=== PATIENT | male | born 2000 | race Caucasian/White ===

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

== ENCOUNTER 2019-01-26 18:38 | Emergency (ER) | payer SELFPAY ==
[~2019-01-26] VITALS: Ht 175.3 cm; Wt 72.7 kg
[2019-01-26 18:41] VITALS: TEMP 97.1
[2019-01-26 20:15] VITALS: BP 134/61; PULSE 72
== END 2019-01-26 20:15 | disposition home or self-care (01) ==
LOC: COL.ER 18:38
DX: S01.81XA Laceration without foreign body of other part of head, initial encounter (principal); R41.1 Anterograde amnesia; R55 Syncope and collapse; F17.210 Nicotine dependence, cigarettes, uncomplicated; F12.90 Cannabis use, unspecified, uncomplicated; X58.XXXA Exposure to other specified factors, initial encounter; Y92.009 Unspecified place in unspecified non-institutional (private) residence as the place of occurrence of the external cause